=== PATIENT | female | born 1950 | race Caucasian/White ===

== ENCOUNTER 2018-05-12 13:04 | Outpatient (CLI) | payer MEDICARE ==
[~2018-05-12 13:04] MED LIST: Gadobenate Dimeglumine 529 MG/1 ML (20ML VIAL) ONE
--- NOTE | 2018-05-12 16:27 | MRI ---
PRE AND POST CONTRAST ENHANCED MRI IMAGES OF THE LUMBAR SPINE: History: Lumbar radiculopathy, M54.16. The patient has a history of lumbar spine surgery in 1998. FINDINGS: Multiplanar, multisequence noncontrast enhanced MRI images were obtained of the lumbar spine. Comparison: None available. FINDINGS: For the purposes of this dictation, the last freely mobile vertebral body will be considered the L5 v ertebral body. All vertebral bodies are numbered according to this. T12-L1: Unremarkable. L1-2: There is mild facet hypertrophy. No significant degree of central or neural foraminal narrowing is seen. L2-3: No significant degree of central or neural foraminal narrowing is seen. There is mild bilateral facet hypertrophic changes. No evidence of neural foraminal narrowing seen. L3-4: Some mild disc desiccation is seen. There is a mild broad based disc bulge. Bilateral facet and ligamentum flavum hypertrophy is seen. This results in mild central and lateral recess stenosis. The re is also minimal bilateral neural foraminal narrowing seen due to the facet hypertrophy. L4-5: Disc desiccation is seen. There is a broad based central disc osteophyte complex compressing th e thecal sac. There is severe facet and ligamentum flavum hypertrophy. This with the broad based cent ral disc protrusion results in critical L4-5 central and lateral recess stenosis obliterating the spi nal canal and markedly compressing the nerve roots and the thecal sac. There is mild bilateral neural foraminal narrowing also seen. L5-S1: There is significant disc space height loss seen. No evidence of disc herniation is seen. Some inferior L5 endplate and superior S1 endplate Modic type II changes are seen. There is mild bilatera l neural foraminal narrowing also seen. IMPRESSION: 1. Critical L4-5 central and lateral recess stenosis due to a broad based protrusion and bilateral fa cet hypertrophy and ligamentum flavum hypertrophy. 2. Neurosurgical consultation is recommended. POS: GRISELDA
== END 2018-05-12 13:05 | disposition home or self-care (01) ==
LOC: BICMRI 13:04
PROVIDERS: ATTEND Psychiatry & Neurology Neurology
DX: M51.16 Intervertebral disc disorders with radiculopathy, lumbar region (principal); G40.209 Localization-related (focal) (partial) symptomatic epilepsy and epileptic syndromes with complex partial seizures, not intractable, without status epilepticus; M48.061 Spinal stenosis, lumbar region without neurogenic claudication; M46.06 Spinal enthesopathy, lumbar region
CPT/HCPCS: 72158; 82565; A9579